=== PATIENT | female | born 1970 | race Caucasian/White ===

== ENCOUNTER 2017-04-16 07:54 | Day surgery (SDC) | payer OTHER ==
[~2017-04-16 07:54] MED LIST: Ketorolac 30 MG/ML SDV ONE; Midazolam 1 MG/ML 2 ML SDV ONE; Ondansetron 4 MG/2 ML SDV ONE; Propofol 200 MG/20 ML SDV ONE; fentaNYL 250 MCG/5 ML SDV ONE
--- NOTE | 2017-04-16 09:19 | PCM.PREANE ---
Preanesthetic Assessment - Anesthesia/Transfusion/Family Hx Anesthesia History: Prior Anesthesia Without Reaction Family History of Anesthesia Reaction: No Transfusion History: No Prior Transfusion(s) Intubation History: Unknown - Review of Systems General: No Symptoms Pulmonary: No Symptoms Cardiovascular: No Symptoms Gastrointestinal: No Symptoms Neurological: No Symptoms Other: Reports: None - Physical Assessment O2 Sat by Pulse Oximetry: 97 Respiratory Rate: 16 Vital Signs: Last Vital Signs Temp 36.2 C 04/16/17 08:00 Pulse 78 04/16/17 08:00 Resp 16 04/16/17 08:00 BP 114/67 04/16/17 08:00 Pulse Ox 97 04/16/17 08:00 Height: 1.55 m Weight: 97.976 kg ASA Class: 2 Mental Status: Alert & Oriented x3 Airway Class: Mallampati = 2 Dentition: Reports: Normal Dentition, [place](s) (x1 left upper) Thyro-Mental Finger Breadths: 3 Mouth Opening Finger Breadths: 3 ROM/Head Extension: Full Lungs: Clear to Auscultation, Normal Respiratory Effort Cardiovascular: Regular Rate, Regular Rhythm - Lab Values: Laboratory Last Values WBC 7.42 K/uL (4.0-11.0) 04/15/17 09:54 RBC 4.81 M/uL (4.30-5.90) 04/15/17 09:54 Hgb 14.0 g/dL (12.0-16.0) 04/15/17 09:54 Hct 41.7 % (36.0-46.0) 04/15/17 09:54 MCV 86.7 fL (80.0-98.0) 04/15/17 09:54 MCH 29.1 pg (27.0-32.0) 04/15/17 09:54 MCHC 33.6 g/dL (31.0-37.0) 04/15/17 09:54 RDW Std Deviation 44.6 fl (28.0-62.0) 04/15/17 09:54 RDW Coeff of Larissa 14 % (11.0-15.0) 04/15/17 09:54 Plt Count 226 K/uL (150-400) 04/15/17 09:54 MPV 10.10 fL (7.40-12.00) 04/15/17 09:54 Nucleated RBC % 0.0 /100WBC 04/15/17 09:54 Nucleated RBCs # 0 K/uL 04/15/17 09:54 - Allergies Allergies/Adverse Reactions: Allergies Allergy/AdvReac Type Severity Reaction Status Date / Time codeine Allergy Rash Verified 04/11/17 11:42 - Blood Blood Available: No - Anesthesia Plan Pre-Op Medication Ordered: None - Acknowledgements Anesthesia Type Planned: General Anesthesia Pt an Appropriate Candidate for the Planned Anesthesia: Yes Alternatives and Risks of Anesthesia Discussed w Pt/Guardian: Yes Pt/Guardian Understands and Agrees with Anesthesia Plan: Yes PreAnesthesia Questionnaire HEENT History: Reports: Allergic Rhinitis Other HEENT History: wears glasses Cardiovascular History: Reports: None Respiratory History: Reports: None Gastrointestinal History: Reports: None Genitourinary History: Reports: Renal Calculus 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: Musculoskeletal History: Reports: Fracture, Neck Pain, Chronic Other Musculoskeletal History: hx of fx wrist and toes, arthritis in neck Neurological History: Reports: Migraines Psychiatric History: Reports: Anxiety, Depression Endocrine/Metabolic History: Reports: Obesity/BMI 30+ Hematologic History: Reports: B12 Deficiency Immunologic History: Reports: None Oncologic (Cancer) History: Reports: None Dermatologic History: Reports: None - Past Surgical History Head Surgeries/Procedures: Reports: None HEENT Surgical History: Reports: None Cardiovascular Surgical History: Reports: None Respiratory Surgical History: Reports: None GI Surgical History: Reports: Appendectomy, Cholecystectomy Female Surgical History: Reports: Section, Kidney stone extraction Endocrine Surgical History: Reports: None Neurological Surgical History: Reports: None Musculoskeletal Surgical History: Reports: None Oncologic Surgical History: Reports: None - SUBSTANCE USE Smoking Status *Q: Former Smoker (quit 8 years ago) Second Hand Smoke Exposure: No Recreational Drug Use History: Yes Recreational Drug Type: Reports: Marijuana/Hashish - HOME MEDS Home Medications: Home Meds Cholecalciferol (Vitamin D3) [Vitamin D3] 800 unit PO DAILY 04/11/17 [History] Cyanocobalamin (Vitamin B-12) [Vitamin B-12] 1,000 mcg IM WEEKLY 04/11/17 [ History] Fexofenadine [Jenny] 60 mg PO DAILY 04/11/17 [History] Triamcinolone Acetonide [Nasacort] 2 spray NASBOTH DAILY 04/11/17 [History] - CURRENT (IN HOUSE) MEDS Current Meds: Current Medications Discontinued Medications Fentanyl (Sublimaze) Confirm Administered Dose 250 mcg .ROUTE .STK-MED ONE Stop: 04/16/17 07:19 Ketorolac Tromethamine (Toradol) Confirm Administered Dose 30 mg .ROUTE .STK- MED ONE Stop: 04/16/17 07:31 Lidocaine HCl (Xylocaine-Mpf 1%) Confirm Administered Dose 5 ml .ROUTE .STK-MED ONE Stop: 04/16/17 07:19 Midazolam HCl (Versed 1 Mg/Ml) Confirm Administered Dose 2 mg .ROUTE .STK-MED ONE Stop: 04/16/17 07:19 Ondansetron HCl (Zofran) Confirm Administered Dose 4 mg .ROUTE .STK-MED ONE Stop: 04/16/17 07:19 Propofol (Diprivan 20 Ml) Confirm Administered Dose 200 mg .ROUTE .STK-MED ONE Stop: 04/16/17 07:19
--- NOTE | 2017-04-16 09:51 | PCM.OPNOTE ---
- General Post-Op/Procedure Note Date of Surgery/Procedure: 04/16/17 Operative Procedure(s): Hysteroscopic polypectomy, fractional dilatation and curettage Findings: Uterus anteverted, 7 mm left cornual polyp, otherwise normal endometrial cavity , sounds to 6 cm. Pre Op Diagnosis: post-menopausal bleeding Post-Op Diagnosis: Same and endometrial polyp Anesthesia Technique: General LMA Primary Surgeon: Carri Cannon Anesthesia Provider: Dhaval Jara Dental Scheduler: Mauro Maddox Pathology: left cornual polyp, endometrial curettings, endocervical curettings Fluid Replacement, Intraop: 700 EBL in mLs: 10 Drain/Tube Comments:: hysteroscopic deficit 80 ml NS Complications: none known Condition: Good
[2017-04-16] MEDS ORDERED: fentaNYL 100 MCG/2 ML SDV IVPUSH PRN (10:12)
--- NOTE | 2017-04-16 10:25 | PCM.POSTAN ---
POST ANESTHESIA ASSESSMENT - MENTAL STATUS Mental Status: Alert, Oriented - RESPIRATORY Respiratory Status: Respiratory Rate WNL, Airway Patent, O2 Saturation Stable - CARDIOVASCULAR CV Status: Pulse Rate WNL, Blood Pressure Stable - GASTROINTESTINAL GI Status: No Symptoms - PAIN Pain Score: 1 - POST OP HYDRATION Hydration Status: Adequate & Stable - OBSERVATIONS Free Text/Narrative:: no anesthesia problems
--- NOTE | 2017-04-16 10:36 | OR ---
SURGEON: Carri Cannon M.D. DATE OF PROCEDURE: 04/16/2017 PREOPERATIVE DIAGNOSIS: Postmenopausal bleeding. POSTOPERATIVE DIAGNOSES: Postmenopausal bleeding and endometrial polyp. LETTER CARRIER: Cici Morillo MS-4. ANESTHESIA: General. ESTIMATED BLOOD LOSS: Minimal. FLUID: 700 mL crystalloid. Hysteroscopic deficit 80 mL of normal saline. FINDINGS: The uterus was anteverted at the external os of the cervix was stenotic, but then was easily dilated. The vagina was clearly atrophic. The uterine cavity sounded to 6 cm. There was a 7 mm polyp at the left uterine cornu, otherwise, completely normal endometrial cavity, atrophic in appearance. Bilateral tubal ostia were identified. COMPLICATIONS: None known. DISPOSITION: Stable to recovery. BRIEF HISTORY: This is a 47-year-old female with an episode of postmenopausal bleeding. Ultrasound in the office showed a thickened endometrium. She was noted to have cervical stenosis and therefore decided to proceed with hysteroscopy with possible polypectomy, possible myomectomy, possible directed biopsies, and fractional D and C in the OR with risks discussed including bleeding, infection, uterine perforation with injury to surrounding organs, risk of fluid overload. Understanding all these risks, she does desire to proceed. DESCRIPTION OF PROCEDURE: With the patient in dorsal lithotomy position, under adequate general analgesia, the perineum and vagina were prepped with Betadine and draped in usual fashion for vaginal surgery. SCDs were in place. She had her bladder drained and an appropriate time-out was held. Bimanual examination revealed an anteverted 8- week size uterus with a slight amount of prolapse. The speculum was placed into the vagina. The vagina was atrophic. The cervix was grasped with an Allis clamp. The stenotic external os of the cervix was entered with a sharp tip of the 3 mm Hegar dilator. Following this, I was able to easily dilate to 5 mm Hegar dilator and the 5 mm hysteroscope was placed into the uterine cavity with excellent visualization. There was noted to be a polyp at the left uterine cornu, otherwise, completely normal uterine cavity. Bilateral tubal ostia were identified. The base of the polyp was snipped with hysteroscopic scissors and grasped with a grasping forceps and removed, sent as a separate specimen. Sharp curettage of the endocervix was then performed collecting the tissue with a Cytobrush and the cervix was further dilated to 8 mm, and the uterine curette was placed into the cavity. Sharp curettage was performed starting at the 12 o'clock position and completing in a clockwise manner. A very small amount of tissue was obtained. Final sponge, needle, and instrument counts were reported as correct. There were no known complications. The patient was transferred to recovery in good condition. KRISTIN MUÑOZ /[id number]
[2017-04-16 11:09] VITALS: BP 119/64
== END 2017-04-16 08:49 | disposition home or self-care (01) ==
LOC: MW.SDS 07:54
PROVIDERS: ATTEND Obstetrics & Gynecology
DX: N84.0 Polyp of corpus uteri (principal); F32.9 Major depressive disorder, single episode, unspecified; F41.9 Anxiety disorder, unspecified; G43.909 Migraine, unspecified, not intractable, without status migrainosus; E53.8 Deficiency of other specified B group vitamins; E66.9 Obesity, unspecified; Z87.442 Personal history of urinary calculi; Z87.891 Personal history of nicotine dependence; Z90.49 Acquired absence of other specified parts of digestive tract; Z98.890 Other specified postprocedural states; Z79.899 Other long term (current) drug therapy; Z88.5 Allergy status to narcotic agent; Z68.41 Body mass index [BMI] 40.0-44.9, adult
CPT/HCPCS: 36415; 58558; 85027; J1885; J2250; J2405; J3010; 00952; 88305; J2704

== ENCOUNTER 2021-04-18 10:56 | Emergency (ER) | payer OTHER ==
[2021-04-18] MEDS ORDERED: Alum Hydrox/Mag Hydrox/Simeth 15 ML, Lidocaine 2% 5 ML PO ONE ×2 (11:24)
[2021-04-18] MEDS ORDERED: Famotidine 20 MG/2 ML SDV IVPUSH ONE (11:24)
--- NOTE | 2021-04-18 11:28 | EDM.PDOC ---
ED HPI GENERAL MEDICAL PROBLEM - General Chief Complaint: Abdominal Pain Stated Complaint: ABDOMINAL PAIN RADIATING INTO BACK Time Seen by Provider: 04/18/21 11:14 Source of Information: Reports: Patient History Limitations: Reports: No Limitations - History of Present Illness INITIAL COMMENTS - FREE TEXT/NARRATIVE: Patient is a 51-year-old female who presents today for abdominal pain. States that she had a similar pain before in the past and multiple tests did not find a reason for the pain he had better on his own. She reports eating some [employer] a few days ago and notes that today about an hour ago the pain became more intense is now radiating to her back. States eating makes the pain worse nothing makes the pain better. She denies any nausea vomiting diarrhea or other symptoms. RUQ Pain Score (Numeric/FACES): 9 - Related Data Allergies Allergy/AdvReac Type Severity Reaction Status Date / Time codeine Allergy Rash Verified 04/18/21 11:21 mold Allergy Shortness Verified 04/18/21 11:21 of Breath Home Meds: Home Meds Cholecalciferol (Vitamin D3) [Vitamin D3] 800 unit PO DAILY 04/11/17 [History] Cyanocobalamin (Vitamin B-12) [Vitamin B-12] 1,000 mcg IM WEEKLY 04/11/17 [History] Omeprazole 20 mg PO DAILY 04/18/21 [History] Past Medical History HEENT History: Reports: Allergic Rhinitis Other HEENT History: wears glasses Cardiovascular History: Reports: None Respiratory History: Reports: None Gastrointestinal History: Reports: None Genitourinary History: Reports: Renal Calculus 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: Musculoskeletal History: Reports: Fracture, Neck Pain, Chronic Other Musculoskeletal History: hx of fx wrist and toes, arthritis in neck Neurological History: Reports: Migraines Psychiatric History: Reports: Anxiety, Depression Endocrine/Metabolic History: Reports: Obesity/BMI 30+ Hematologic History: Reports: B12 Deficiency Immunologic History: Reports: None Oncologic (Cancer) History: Reports: None Dermatologic History: Reports: None - Past Surgical History Head Surgeries/Procedures: Reports: None HEENT Surgical History: Reports: None Cardiovascular Surgical History: Reports: None Respiratory Surgical History: Reports: None GI Surgical History: Reports: Appendectomy, Cholecystectomy Female Surgical History: Reports: Section, Kidney stone extraction Endocrine Surgical History: Reports: None Neurological Surgical History: Reports: None Musculoskeletal Surgical History: Reports: None Oncologic Surgical History: Reports: None Social & Family History - Family History Family Medical History: No Pertinent Family History ED ROS GENERAL - Review of Systems Review Of Systems: See Below Constitutional: Reports: No Symptoms HEENT: Reports: No Symptoms Respiratory: Reports: No Symptoms Cardiovascular: Reports: No Symptoms Endocrine: Reports: No Symptoms GI/Abdominal: Reports: Abdominal Pain : Reports: No Symptoms Musculoskeletal: Reports: No Symptoms Skin: Reports: No Symptoms Neurological: Reports: No Symptoms Psychiatric: Reports: No Symptoms Hematologic/Lymphatic: Reports: No Symptoms Immunologic: Reports: No Symptoms ED EXAM, GI/ABD - Physical Exam Exam: See Below Exam Limited By: No Limitations General Appearance: Alert, WD/WN, No Apparent Distress Eyes: Bilateral: EOMI Ears: Normal External Exam Head: Atraumatic, Normocephalic Respiratory/Chest: No Respiratory Distress, Lungs Clear Cardiovascular: Normal Peripheral Pulses, Regular Rate, Rhythm Back Exam: No: CVA Tenderness (L), CVA Tenderness (R) Extremities: Normal Inspection Neurological: Alert, Oriented, Normal Cognition, Normal Gait Course - Vital Signs Last Recorded V/S: Last Vital Signs Temp 96.9 F 04/18/21 11:22 Pulse 87 04/18/21 12:51 Resp 16 04/18/21 12:51 BP 137/81 04/18/21 12:51 Pulse Ox 100 04/18/21 12:51 - Orders/Labs/Meds Labs: Laboratory Tests 04/18/21 04/18/21 04/18/21 Range/Units 11:24 11:24 12:02 WBC 10.83 (4.0-11.0) K/uL RBC 4.50 (4.30-5.90) M/uL Hgb 12.4 (12.0-16.0) g/dL Hct 37.9 (36.0-46.0) % MCV 84.2 (80.0-98.0) fL MCH 27.6 (27.0-32.0) pg MCHC 32.7 (31.0-37.0) g/dL RDW Std Deviation 44.4 (28.0-62.0) fl RDW Coeff of Larissa 15 (11.0-15.0) % Plt Count 264 (150-400) K/uL MPV 10.30 (7.40-12.00) fL Neut % (Auto) 81.9 H (48.0-80.0) % Lymph % (Auto) 11.5 L (16.0-40.0) % [place] % (Auto) 5.9 (0.0-15.0) % Eos % (Auto) 0.5 (0.0-7.0) % Baso % (Auto) 0.2 (0.0-1.5) % Neut # (Auto) 8.9 H (1.4-5.7) K/uL Lymph # (Auto) 1.3 (0.6-2.4) K/uL [place] # (Auto) 0.6 (0.0-0.8) K/uL Eos # (Auto) 0.1 (0.0-0.7) K/uL Baso # (Auto) 0.0 (0.0-0.1) K/uL Nucleated RBC % 0.0 /100WBC Nucleated RBCs # 0 K/uL Sodium 138 (136-145) mmol/L Potassium 4.1 (3.5-5.1) mmol/L Chloride 104 (98-107) mmol/L Carbon Dioxide 23.3 (21.0-32.0) mmol/L BUN 18 (7.0-18.0) mg/dL Creatinine 0.9 (0.6-1.0) mg/dL Est Cr Clr Drug Dosing 55.18 mL/min Estimated GFR (MDRD) > 60.0 ml/min Glucose 106 (74-106) mg/dL Calcium 8.8 (8.5-10.1) mg/dL Phosphorus 3.0 (2.6-4.7) mg/dL Magnesium 1.9 (1.8-2.4) mg/dL Total Bilirubin 0.3 (0.2-1.0) mg/dL AST 15 (15-37) IU/L ALT 23 (14-63) IU/L Alkaline Phosphatase 94 (46-116) U/L Total Protein 7.5 (6.4-8.2) g/dL Albumin 3.8 (3.4-5.0) g/dL Globulin 3.7 (2.6-4.0) g/dL Albumin/Globulin Ratio 1.0 (0.9-1.6) Lipase 103 (73-393) U/L Urine Color YELLOW Urine Appearance CLEAR Urine pH 6.0 (5.0-8.0) Ur Specific Howard 1.015 (1.001-1.035) Urine Protein NEGATIVE (NEGATIVE) mg/dL Urine Glucose (UA) NEGATIVE (NEGATIVE) mg/dL Urine Ketones NEGATIVE (NEGATIVE) mg/dL Urine Occult Blood NEGATIVE (NEGATIVE) Urine Nitrite NEGATIVE (NEGATIVE) Urine Bilirubin NEGATIVE (NEGATIVE) Urine Urobilinogen 0.2 (<2.0) EU/dL Ur Leukocyte Esterase NEGATIVE (NEGATIVE) Urine HCG, Qual (NEGATIVE) 04/18/21 Range/Units 12:02 WBC (4.0-11.0) K/uL RBC (4.30-5.90) M/uL Hgb (12.0-16.0) g/dL Hct (36.0-46.0) % MCV (80.0-98.0) fL MCH (27.0-32.0) pg MCHC (31.0-37.0) g/dL RDW Std Deviation (28.0-62.0) fl RDW Coeff of Larissa (11.0-15.0) % Plt Count (150-400) K/uL MPV (7.40-12.00) fL Neut % (Auto) (48.0-80.0) % Lymph % (Auto) (16.0-40.0) % Montgomery % (Auto) (0.0-15.0) % Eos % (Auto) (0.0-7.0) % Baso % (Auto) (0.0-1.5) % Neut # (Auto) (1.4-5.7) K/uL Lymph # (Auto) (0.6-2.4) K/uL Montgomery # (Auto) (0.0-0.8) K/uL Eos # (Auto) (0.0-0.7) K/uL Baso # (Auto) (0.0-0.1) K/uL Nucleated RBC % /100WBC Nucleated RBCs # K/uL Sodium (136-145) mmol/L Potassium (3.5-5.1) mmol/L Chloride (98-107) mmol/L Carbon Dioxide (21.0-32.0) mmol/L BUN (7.0-18.0) mg/dL Creatinine (0.6-1.0) mg/dL Est Cr Clr Drug Dosing mL/min Estimated GFR (MDRD) ml/min Glucose (74-106) mg/dL Calcium (8.5-10.1) mg/dL Phosphorus (2.6-4.7) mg/dL Magnesium (1.8-2.4) mg/dL Total Bilirubin (0.2-1.0) mg/dL AST (15-37) IU/L ALT (14-63) IU/L Alkaline Phosphatase (46-116) U/L Total Protein (6.4-8.2) g/dL Albumin (3.4-5.0) g/dL Globulin (2.6-4.0) g/dL Albumin/Globulin Ratio (0.9-1.6) Lipase (73-393) U/L Urine Color Urine Appearance Urine pH (5.0-8.0) Ur Specific Howard (1.001-1.035) Urine Protein (NEGATIVE) mg/dL Urine Glucose (UA) (NEGATIVE) mg/dL Urine Ketones (NEGATIVE) mg/dL Urine Occult Blood (NEGATIVE) Urine Nitrite (NEGATIVE) Urine Bilirubin (NEGATIVE) Urine Urobilinogen (<2.0) EU/dL Ur Leukocyte Esterase (NEGATIVE) Urine HCG, Qual NEGATIVE (NEGATIVE) Meds: Medications Discontinued Medications Generic Name Dose Route Start Last Admin Trade Name Freq PRN Reason Stop Dose Admin Al Hydroxide/Mg Hydroxide 15 0 ml 04/18/21 11:24 04/18/21 11:32 ml/ Lidocaine HCl 5 ml PO 04/18/21 11:25 1 each ONETIME ONE Administration Famotidine 20 mg 04/18/21 11:24 04/18/21 11:33 Famotidine 20 Mg/2 Ml Sdv IVPUSH 04/18/21 11:25 20 mg ONETIME ONE Administration Ketorolac Tromethamine 15 mg 04/18/21 12:19 04/18/21 12:23 Ketorolac 15 Mg/Ml Sdv IVPUSH 04/18/21 12:20 15 mg NOW STA Administration - Re-Assessments/Exams Free Text/Narrative Re-Assessment/Exam: 04/18/21 15:[address] scan shows a large lymph node possible duodenitis. Patient was already seen by surgery and was planned to be scoped but did not proceed because she felt better. We will refer patient back to general surgery. We will send patient with Maalox and simethicone. Departure - Departure Time of Disposition: 15:03 Disposition: Home, Self-Care 01 Condition: Good Clinical Impression: Duodenitis - Discharge Information *PRESCRIPTION DRUG MONITORING PROGRAM REVIEWED*: Not Applicable *COPY OF PRESCRIPTION DRUG MONITORING REPORT IN PATIENT JONES: Not Applicable Instructions: Duodenitis Referrals: Sandy Clement NP [Primary Care Provider] - Forms: ED Department Discharge Additional Instructions: The following information is given to patients seen in the emergency department who are being discharged to home. This information is to outline your options for follow-up care. We provide all patients seen in our emergency department with a follow-up referral. The need for follow-up, as well as the timing and circumstances, are variable depending upon the specifics of your emergency department visit. If you don't have a primary care physician on staff, we will provide you with a referral. We always advise you to contact your personal physician following an emergency department visit to inform them of the circumstance of the visit and for follow-up with them and/or the need for any referrals to a consulting specialist. The emergency department will also refer you to a specialist when appropriate. This referral assures that you have the opportunity for follow-up care with a specialist. All of these measure are taken in an effort to provide you with optimal care, which includes your follow-up. Under all circumstances we always encourage you to contact your private physician who remains a resource for coordinating your care. When calling for follow-up care, please make the office aware that this follow-up is from your recent emergency room visit. If for any reason you are refused follow-up, please contact the [facility] Emergency Department at and asked to speak to the emergency department charge nurse. Please follow up with your primary care physician. If you do not have a primary care physician, see below: [facility] - General Surgery Professional Building [address] [place] [address], [address] [place] [address] You were seen today for abdominal pain. Your CAT scan showed enlarged lymph nodes by related to duodenitis. We will send you home with some Maalox and simethicone to help out with the pain. Seen in the past by general surgery and was a continue to have work-up recommended few please follow-up with general surgery for further care. You have any other concerning signs or symptom please return to the ED. Sepsis Event Note (ED) - Evaluation Sepsis Screening Result: No Definite Risk - Focused Exam Vital Signs: Vital Signs Temp Pulse Resp BP Pulse Ox 04/18/21 12:51 87 16 137/81 100 04/18/21 11:22 96.9 F 95 20 153/84 H 98 - Assessment/Plan Plan: Patient is a 51-year-old female presents today for upper abdominal pain. Patient has tenderness in the LUQ and epigastric area. Will obtain labs provide pain control's and likely scan the patient.
[2021-04-18 12:07] LABS: BLOOD UREA NITROGEN,BUN 18 mg/dL (7.0-18.0); CARBON DIOXIDE,CO2 23.3 mmol/L (21.0-32.0); CHLORIDE,CL 104 mmol/L (98-107); GLUCOSE RANDOM 106 mg/dL (74-106); LIPASE 103 U/L (73-393); POTASSIUM,K 4.1 mmol/L (3.5-5.1); SODIUM,NA 138 mmol/L (136-145)
[2021-04-18] MEDS ORDERED: Ketorolac 15 MG/ML SDV IVPUSH STA (12:19)
--- NOTE | 2021-04-18 14:46 | CT ---
INDICATION: Epigastric pain radiating to the back. TECHNIQUE: CT of the abdomen and pelvis with 100 cc Isovue 370 IV contrast. Coronal and sagittal reconstructions. COMPARISON: CT of the abdomen and pelvis of 01/31/2016. FINDINGS: The liver is enlarged measuring 20 cm in length. Diffuse hepatic steatosis. The spleen is enlarged measuring 13.8 cm in length. Cholecystectomy. No biliary dilation. The adrenal glands are negative. Hepatic and portal veins are patent. There is a focus of fat stranding with a prominent lymph node in the central retroperitoneum medial to the uncinate process of the pancreas and adjacent to the transverse duodenum (series 201 images [id number] and series 203, image 65). Mild wall thickening of the duodenum. Findings could represent focal pancreatitis or duodenitis. No fluid collection to suggest pseudocyst. No dilation of the pancreatic duct. Symmetric enhancement of the kidneys. Small low-attenuation lesions in both kidneys most likely represent cysts. No hydronephrosis or ureteral dilation. No obstructing urinary calculi. The bladder and uterus are normal in appearance. There is a 5.3 cm cystic lesion in the right adnexa (series 201, image 150). No abnormality in the left adnexa. No bowel dilation. There is a redundant loop of duodenum prior to crossing midline. The cecum is located in the right upper quadrant similar to prior exam. The appendix is not identified, however there are no secondary signs of inflammation adjacent to the cecum. No intraperitoneal free air or fluid. No lymphadenopathy by size criteria. Degenerative changes of pubic symphysis. Abnormal trabeculation within the posterior iliac bones similar to prior exam. Minimal dependent atelectasis. The lung bases are otherwise clear. IMPRESSION: 1. Focus of fat stranding with a prominent lymph node in the central retroperitoneum medial to the uncinate process of the pancreas and adjacent to the transverse duodenum. Findings could represent focal pancreatitis or duodenitis. 2. Mild hepatosplenomegaly with diffuse hepatic steatosis. 3. 5.3 cm cystic lesion in the right adnexa. This could be further evaluated with pelvic ultrasound. Please note that all CT scans at this facility use dose modulation, iterative reconstruction, and/or weight-based dosing when appropriate to reduce radiation dose to as low as reasonably achievable. Dictated by Maribell Serna MD @ 04/18/2021 2:45:[address] Maribell Serna @ Apr 18 2021 2:45PM
[2021-04-18 15:30] VITALS: BP 132/85; PULSE 88
[2021-04-18] MEDS ORDERED: Iopamidol 755 MG/ML 500 ML Multipack Bottle IVPUSH STA (17:43)
== END 2021-04-18 15:31 | disposition home or self-care (01) ==
LOC: MW.ED 10:56
DX: K29.80 Duodenitis without bleeding (principal); E66.9 Obesity, unspecified; Z68.42 Body mass index [BMI] 45.0-49.9, adult; Z88.5 Allergy status to narcotic agent; Z91.048 Other nonmedicinal substance allergy status
CPT/HCPCS: 74177; 80053; 81003; 81025; 83690; 83735; 84100; 85025; 96374; 96375; 99284; A9270; J1885; J3490; Q9967

== ENCOUNTER 2021-05-11 11:55 | Day surgery (SDC) | payer OTHER ==
[~2021-05-11 11:55] MED LIST changes: -Ketorolac 30 MG/ML SDV ONE; +Lactated Ringers 1,000 ML IV SCH; -Midazolam 1 MG/ML 2 ML SDV ONE; -Ondansetron 4 MG/2 ML SDV ONE; -Propofol 200 MG/20 ML SDV ONE; +Sodium Chloride 0.9% 10 ML SDV IV PRN; +Sodium Chloride 0.9% 10 ML Syringe FLUSH PRN; +Sodium Chloride 0.9% 2.5 ML Syringe FLUSH PRN; -fentaNYL 250 MCG/5 ML SDV ONE
--- NOTE | 2021-05-11 12:23 | PCM.PREANE ---
Preanesthetic Assessment - Procedure Proposed Procedure: EGD, Colonoscopy - Anesthesia/Transfusion/Family Hx Anesthesia History: Prior Anesthesia Without Reaction Transfusion History: No Prior Transfusion(s) Intubation History: Unknown - Review of Systems General: No Symptoms Pulmonary: No Symptoms (Quit smoking x12 yrs) Cardiovascular: No Symptoms Gastrointestinal: No Symptoms (GERD well controlled) Neurological: No Symptoms (Chronic SLAUGHTER's) Other: Reports: None (h/o kidney stones) - Physical Assessment NPO Status Date: 05/09/21 NPO Status Time: 21:00 (Solids, 0945 today liq) Vital Signs: Last Vital Signs Temp 98.1 F 05/11/21 11:55 Pulse 92 05/11/21 11:55 Resp 15 05/11/21 11:55 BP 163/94 H 05/11/21 11:55 Pulse Ox 98 05/11/21 11:55 Height: 5 ft 1 in Weight: 110.677 kg (Morbid obesity) ASA Class: 3 Mental Status: Alert & Oriented x3 Airway Class: Mallampati = 2 Dentition: Reports: Normal Dentition Thyro-Mental Finger Breadths: 3 Mouth Opening Finger Breadths: 3 ROM/Head Extension: Full Lungs: Clear to Auscultation, Normal Respiratory Effort Cardiovascular: Regular Rate, Regular Rhythm - Allergies Allergies/Adverse Reactions: Allergies Allergy/AdvReac Type Severity Reaction Status Date / Time codeine Allergy Rash Verified 05/05/21 10:58 mold Allergy Shortness Verified 05/05/21 10:58 of Breath - Acknowledgements Anesthesia Type Planned: General Anesthesia Pt an Appropriate Candidate for the Planned Anesthesia: Yes Alternatives and Risks of Anesthesia Discussed w Pt/Guardian: Yes Pt/Guardian Understands and Agrees with Anesthesia Plan: Yes PreAnesthesia Questionnaire HEENT History: Other HEENT History: wears glasses Cardiovascular History: Reports: None Respiratory History: Reports: None Gastrointestinal History: Reports: GERD Other Gastrointestinal History: current abdominal pain Genitourinary History: Reports: Renal Calculus CAN CLEANER History: Reports: Musculoskeletal History: Reports: Fracture, Neck Pain, Chronic Other Musculoskeletal History: hx of fx wrist and toes, arthritis in neck Neurological History: Reports: Headaches, Chronic Other Neuro History: chronic headaches due to neck pain Psychiatric History: Reports: Anxiety Endocrine/Metabolic History: Reports: Obesity/BMI 30+ Hematologic History: Reports: B12 Deficiency Immunologic History: Reports: None Oncologic (Cancer) History: Reports: None Dermatologic History: Reports: None - Infectious Disease History Infectious Disease History: Reports: Chicken Pox - Past Surgical History Head Surgeries/Procedures: Reports: None HEENT Surgical History: Reports: None Cardiovascular Surgical History: Reports: None Respiratory Surgical History: Reports: None GI Surgical History: Reports: Appendectomy, Cholecystectomy Female Surgical History: Reports: Section, Kidney stone extraction, LEEP Other Female Surgeries/Procedures: Hysteroscopy Endocrine Surgical History: Reports: None Neurological Surgical History: Reports: None Musculoskeletal Surgical History: Reports: None Oncologic Surgical History: Reports: None - SUBSTANCE USE Tobacco Use Status *Q: Former Tobacco User Tobacco Use Within Last Twelve Months: No Recreational Drug Use History: No - HOME MEDS Home Medications: Home Meds Cholecalciferol (Vitamin D3) [Vitamin D3] 400 unit PO DAILY 04/11/17 [History] Omeprazole 20 mg PO QAM 04/18/21 [History] Cyanocobalamin (Vitamin B12) [Vitamin B12] 500 mcg PO DAILY 05/05/21 [History] - CURRENT (IN HOUSE) MEDS Current Meds: Current Medications Lactated Ringer's (Ringers, Lactated) 1,000 mls @ 125 mls/hr IV ASDIRECTED DEVON Sodium Chloride (Sodium Chloride 0.9% 10 Ml Syringe) 10 ml FLUSH ASDIRECTED PRN PRN Reason: Keep Vein Open Sodium Chloride (Sodium Chloride 0.9% 2.5 Ml Syringe) 2.5 ml FLUSH ASDIRECTED PRN PRN Reason: Keep Vein Open Sodium Chloride (Sodium Chloride 0.9% 10 Ml Syringe) 10 ml FLUSH ASDIRECTED PRN PRN Reason: Keep Vein Open Sodium Chloride (Sodium Chloride 0.9% 2.5 Ml Syringe) 2.5 ml FLUSH ASDIRECTED PRN PRN Reason: Keep Vein Open Sodium Chloride (Sodium Chloride 0.9% 10 Ml Sdv) 10 ml IV ASDIRECTED PRN PRN Reason: IV Use
[2021-05-11] MEDS ORDERED: Lidocaine 2% 5 ML SDV ONE (14:14)
[2021-05-11] MEDS ORDERED: propofoL 50 ML ONE (14:14)
[2021-05-11] MEDS ORDERED: Propofol 200 MG/20 ML SDV ONE ×2 (15:27→15:43)
--- NOTE | 2021-05-11 16:06 | PCM.POSTAN ---
POST ANESTHESIA ASSESSMENT - MENTAL STATUS Mental Status: Alert, Oriented - VITAL SIGNS Vital Signs: Last Vital Signs Temp 98.1 F 05/11/21 11:55 Pulse 92 05/11/21 11:55 Resp 15 05/11/21 11:55 BP 163/94 H 05/11/21 11:55 Pulse Ox 98 05/11/21 11:55 - RESPIRATORY Respiratory Status: Respiratory Rate WNL, Airway Patent, O2 Saturation Stable - CARDIOVASCULAR CV Status: Pulse Rate WNL, Blood Pressure Stable - GASTROINTESTINAL GI Status: No Symptoms - PAIN Pain Score: 0 - POST OP HYDRATION Hydration Status: Adequate & Stable
--- NOTE | 2021-05-11 16:08 | PCM48HPAN ---
Post Anesthesia Note - EVALUATION WITHIN 48HRS OF ANESTHETIC Vital Signs in Normal Range: Yes Patient Participated in Evaluation: Yes Respiratory Function Stable: Yes Airway Patent: Yes Cardiovascular Function Stable: Yes Hydration Status Stable: Yes Pain Control Satisfactory: Yes Nausea and Vomiting Control Satisfactory: Yes Mental Status Recovered: Yes Vital Signs: Last Vital Signs Temp 97.7 F 05/11/21 15:58 Pulse 87 05/11/21 16:05 Resp 16 05/11/21 16:05 BP 138/80 05/11/21 16:05 Pulse Ox 100 05/11/21 16:05 - COMMENTS/OBSERVATIONS Free Text/Narrative:: Pt doing well post-op. VSS. No apparent anesthetic complications. Dr. Vladimir Ho
--- NOTE | 2021-05-11 16:10 | PCM.OPNOTE ---
- General Post-Op/Procedure Note Date of Surgery/Procedure: 05/11/21 Operative Procedure(s): Diagnostic EGD and colonoscopy Findings: Normal colonoscopy. Normal appearing duodenum. Hiatal hernia Pre Op Diagnosis: Duodenitis, change in bowel habits Post-Op Diagnosis: Hiatal hernia, normal colonoscopy Anesthesia Technique: [facility] [place] Primary Surgeon: Unique Allison Condition: Good
[2021-05-11] MEDS ORDERED: Acetaminophen 1,000 MG in Premix Bag 1 BAG IV ONE (16:11)
[2021-05-11 16:38] VITALS: BP 133/66; PULSE 82
--- NOTE | 2021-05-12 20:40 | OR ---
SURGEON: UNIQUE ALLISON MD DATE OF PROCEDURE: 05/11/2021 PREOPERATIVE DIAGNOSES: 1. Duodenitis. 2. Change in bowel habits. POSTOPERATIVE DIAGNOSES: 1. Hiatal hernia. 2. Normal colonoscopy. 3. Grade 4 hemorrhoids. PROCEDURES PERFORMED: Diagnostic esophagogastroduodenoscopy and colonoscopy. PRIMARY SURGEON: Unique Allison MD ANESTHESIA: MAC. INSTRUMENTS USED: Olympus endoscope and colonoscope. EXTENT OF EXAM: To the second portion of duodenum, to the cecum. PREPARATION: Good. LIMITATIONS: None. INDICATIONS FOR EXAMINATION: The patient is a 51-year-old female who was recently in our emergency room with upper abdominal pain. She was found to have either duodenitis versus acute pancreatitis. Ever since then, the patient has also had changes in her bowel habits. As a part of the patient's workup, the decision was made to proceed with diagnostic EGD and colonoscopy. I explained the procedures, expected perioperative course, and the risks. She verbalized understanding and wishes to proceed. PROCEDURE IN DETAIL: The patient was brought in to the endoscopy suite and placed in the left lateral decubitus position. A time-out was completed verifying the patient's name, age, date of , allergies, and procedure to be performed. A bite block was placed in the patient's mouth. Monitored anesthesia care was induced and continuous oxygen was provided via face mask throughout the procedure. After adequate sedation was achieved, a well-lubricated endoscope was placed in the patient's mouth and advanced under direct visualization to the second portion of the duodenum. This appeared normal and a photograph was taken. The scope was then fully withdrawn while examining the color, texture, anatomy, and integrity of mucosa of the upper GI tract. Biopsies were taken of the second portion of the duodenum taking care to identify the opening of the common bile duct. In the first portion of duodenum, another biopsy was taken as well. These were sent to Pathology labeled as duodenal biopsy #2 and #1. #2 signified the second portion of duodenum and the first signified the first portion of duodenum. The scope was then brought into the stomach and a photograph was taken of the pylorus. This appeared normal. The scope was retroflexed and I identified a hiatal hernia at the GE junction. A photograph of this was taken. The gastric mucosa itself did not appear grossly inflamed or ulcerated. Biopsies were taken of the gastric antrum, body, and fundus. The scope was then brought into the distal esophagus. A photograph was taken of the hiatal hernia sac and the Z- line. The patient had no signs of distal esophagitis and a biopsy was taken 1 cm above the Z-line and sent to Pathology for histologic review. The scope was removed and this portion of the procedure terminated. The patient had a large amount of secretions and required aggressive suctioning during the case. The patient had some upper airway obstruction as well. Once her airway was stabilized, we then began the colonoscopy portion of the case. A digital rectal exam was performed which revealed grade 4 hemorrhoids. A well-lubricated colonoscope was inserted in the rectum and advanced under direct visualization to the level of the cecum. The cecum was identified by both visual and anatomic landmarks. A photograph was taken of the cecal cap. The scope was then fully withdrawn while examining the color, texture, anatomy, and integrity of the mucosa from the cecum to the anal canal. The patient's terminal ileum appeared normal. The colonic mucosa all appeared normal. There was no evidence of inflammation or ulceration. The scope was brought into the rectum and retroflexed to allow visualization of the anal canal opening. This appeared normal, and a photograph was taken. The scope was then straightened out and fully withdrawn. The cecum to anus time was greater than 6 minutes. The patient tolerated the procedure well and was transferred to the PACU in stable condition. ENDOSCOPIC DIAGNOSES: 1. Duodenitis. 2. Normal colonoscopy. 3. Grade 4 hemorrhoids. RECOMMENDATION: Follow up in clinic in two weeks. WENDY MUÑOZ /[id number]
== END 2021-05-11 16:50 | disposition home or self-care (01) ==
LOC: MW.SDS 11:55
PROVIDERS: ATTEND Surgery
DX: R19.4 Change in bowel habit (principal); K64.3 Fourth degree hemorrhoids; K29.80 Duodenitis without bleeding; K44.9 Diaphragmatic hernia without obstruction or gangrene; E66.9 Obesity, unspecified; Z88.5 Allergy status to narcotic agent; Z79.899 Other long term (current) drug therapy; Z90.49 Acquired absence of other specified parts of digestive tract; Z98.890 Other specified postprocedural states; Z87.891 Personal history of nicotine dependence; Z68.42 Body mass index [BMI] 45.0-49.9, adult
CPT/HCPCS: 43239; 45378; 88305; 88342; J0131; J2704; J7120; 00813

== ENCOUNTER 2022-03-13 17:48 | Emergency (ER) | payer OTHER ==
[2022-03-13 19:43] VITALS: BP 159/95; PULSE 71
== END 2022-03-13 19:48 | disposition home or self-care (01) ==
LOC: MW.ED 17:48
DX: S99.922A Unspecified injury of left foot, initial encounter (principal); K21.9 Gastro-esophageal reflux disease without esophagitis; E66.9 Obesity, unspecified; Z68.42 Body mass index [BMI] 45.0-49.9, adult; Z88.2 Allergy status to sulfonamides; Z91.048 Other nonmedicinal substance allergy status; Z79.899 Other long term (current) drug therapy; W01.0XXA Fall on same level from slipping, tripping and stumbling without subsequent striking against object, initial encounter
CPT/HCPCS: 73600-26-LT; 73600-LT; 73630-26-LT; 73630-LT; 99283

== ENCOUNTER 2023-05-25 20:59 | Inpatient (IN) | payer OTHER ==
[2023-05-25] MEDS ORDERED: Sodium Chloride 0.9% 10 ML Syringe FLUSH PRN (22:39)
[2023-05-25] MEDS ORDERED: Sodium Chloride 0.9% 2.5 ML Syringe FLUSH PRN (22:39)
[2023-05-25] MEDS ORDERED: Sodium Chloride 0.9% 1,000 ML IV ONE (22:39)
[2023-05-25 23:03] LABS: BASOPHILS PERCENT AUTO 0.2 % (0.0-1.5); EOSINOPHILS PERCENT AUTO 0.1 % (0.0-7.0); HEMATOCRIT 41.4 % (36.0-46.0); HEMOGLOBIN 13.7 g/dL (12.0-16.0); LYMPHOCYTES ABSOLUTE AUTO 0.6 K/uL (0.6-2.4); LYMPHOCYTES PERCENT AUTO 5.3 % (16.0-40.0); MEAN CORPUSCULAR HEMOGLOBIN 28.1 pg (27.0-32.0); MEAN CORPUSCULAR HGB CONC 33.1 g/dL (31.0-37.0); MEAN CORPUSCULAR VOLUME 84.8 fL (80.0-98.0); MONOCYTES ABSOLUTE AUTO 0.7 K/uL (0.0-0.8); MONOCYTES PERCENT AUTO 6.1 % (0.0-15.0); NEUTROPHILS ABSOLUTE AUTO 9.7 K/uL (1.4-5.7); NEUTROPHILS PERCENT AUTO 88.3 % (48.0-80.0); NRBC ABSOLUTE 0 K/uL; PLATELET COUNT,PLT 211 K/uL (150-400); RED BLOOD CELL COUNT 4.88 M/uL (4.30-5.90); WHITE BLOOD CELL COUNT,WBC 10.93 K/uL (4.0-11.0)
[2023-05-25 23:38] LABS: A/G RATIO 0.9 (0.9-1.6); ALBUMIN 3.7 g/dL (3.4-5.0); BILIRUBIN TOTAL 0.4 mg/dL (0.2-1.0); CALCIUM 8.5 mg/dL (8.5-10.1); CARBON DIOXIDE,CO2 21.1 mmol/L (21.0-32.0); CREATININE 0.9 mg/dL (0.6-1.0); EST CRCL DRUG DOSING (CG) 53.92 mL/min; MAGNESIUM 1.7 mg/dL (1.8-2.4); POTASSIUM,K 3.8 mmol/L (3.5-5.1); PROTEIN TOTAL,TP 7.7 g/dL (6.4-8.2)
[2023-05-25] MEDS ORDERED: Ketorolac 30 MG/ML SDV IVPUSH ONE (23:56)
[2023-05-26] MEDS ORDERED: Iopamidol 755 MG/ML 500 ML Multipack Bottle IVPUSH ONE (00:09)
[2023-05-26 00:13] LABS: APPEARANCE,URINE CLEAR; BILIRUBIN,URINE NEGATIVE (NEGATIVE); COLOR,URINE YELLOW; GLUCOSE,URINE NEGATIVE (NEGATIVE); KETONES,URINE NEGATIVE (NEGATIVE); LEUKOCYTE ESTERASE,URINE NEGATIVE (NEGATIVE); NITRITE,URINE NEGATIVE (NEGATIVE); OCCULT BLOOD,URINE TRACE-INTACT (NEGATIVE); PROTEIN,URINE NEGATIVE (NEGATIVE); UROBILINOGEN,URINE 0.2 EU/dL (<2.0)
[2023-05-26] MEDS ORDERED: Sodium Chloride 0.9% 1,000 ML IV ONE ×3 (00:13→17:13)
[2023-05-26 00:45] LABS: EPITHELIAL CELLS,URINE FEW (NONE-FEW); RBC,URINE 0-1 (0-2/HPF); WBC,URINE 0-1 (0-5/HPF)
[2023-05-26 00:46] LABS: BACTERIA,URINE RARE (NEGATIVE)
[2023-05-26] MEDS ORDERED: Acetaminophen 500 MG Tab PO ONE (02:38)
[2023-05-26 04:15] LABS: TSH ULTRASENSITIVE 0.97 uIU/mL (0.36-3.74)
[2023-05-26] MEDS ORDERED: Benzocaine/Cetylpyridinium/Menthol Lozenge MUCMEM PRN (05:17)
[2023-05-26] MEDS ORDERED: cefTRIAXone 2 GM in Sodium Chloride 0.9% 50 ML IV SCH (05:30)
[2023-05-26] MEDS: Acetaminophen 325 MG Tab PO PRN ×4 (05:51→20:39)
[2023-05-26] MEDS ORDERED: Glucagon,Human Recombinant 1 MG Vial IM PRN (06:14)
[2023-05-26] MEDS ORDERED: 50% Dextrose in Water 50 ML Syringe IVPUSH PRN (06:14)
[2023-05-26 06:55] LABS: BASOPHILS PERCENT AUTO 0.2 % (0.0-1.5); HEMATOCRIT 36.1 % (36.0-46.0); HEMOGLOBIN 11.9 g/dL (12.0-16.0); LYMPHOCYTES ABSOLUTE AUTO 0.7 K/uL (0.6-2.4); LYMPHOCYTES PERCENT AUTO 7.5 % (16.0-40.0); MEAN CORPUSCULAR HEMOGLOBIN 28.5 pg (27.0-32.0); MEAN CORPUSCULAR VOLUME 86.4 fL (80.0-98.0); MONOCYTES ABSOLUTE AUTO 0.6 K/uL (0.0-0.8); MONOCYTES PERCENT AUTO 6.3 % (0.0-15.0); NEUTROPHILS ABSOLUTE AUTO 8.2 K/uL (1.4-5.7); PLATELET COUNT,PLT 198 K/uL (150-400); RED BLOOD CELL COUNT 4.18 M/uL (4.30-5.90); WHITE BLOOD CELL COUNT,WBC 9.51 K/uL (4.0-11.0)
[2023-05-26 07:14] LABS: A/G RATIO 0.9 (0.9-1.6); ALBUMIN 3.2 g/dL (3.4-5.0); BILIRUBIN TOTAL 0.3 mg/dL (0.2-1.0); CALCIUM 7.7 mg/dL (8.5-10.1); CARBON DIOXIDE,CO2 21.3 mmol/L (21.0-32.0); CREATININE 0.8 mg/dL (0.6-1.0); EST CRCL DRUG DOSING (CG) 60.66 mL/min; POTASSIUM,K 3.4 mmol/L (3.5-5.1); PROTEIN TOTAL,TP 6.9 g/dL (6.4-8.2)
[2023-05-26] MEDS: Insulin Aspart 100 Units/ML 3 ML Pen SUBCUT SCH ×3 (08:18→17:30)
[2023-05-26] MEDS ORDERED: Potassium Chloride 20 MEQ Tab.ER PO ONE (09:26)
[2023-05-26] MEDS ORDERED: Magnesium Sulfate/Water 2 GM in Premix Bag 1 BAG IV ONE (09:27)
[2023-05-26 10:07] LABS: CORONAVIRUS COVID-19 NAA POSITIVE (NEGATIVE); INFLUENZA A NAA NEGATIVE (NEGATIVE); INFLUENZA B NAA NEGATIVE (NEGATIVE)
[2023-05-26] MEDS ORDERED: Ondansetron 4 MG/2 ML SDV IVPUSH ONE (13:30)
[2023-05-26] MEDS ORDERED: Labetalol 100 MG/20 ML MDV IVPUSH ONE (14:40)
[2023-05-26] MEDS: Benzocaine/Cetylpyridinium/Menthol Lozenge MUCMEM PRN ×2 (16:03→20:39)
[2023-05-26] MEDS: Piperacillin/Tazobactam 4.5 GM in Sodium Chloride 0.9% 100 ML IV SCH ×2 (17:35→22:32)
[2023-05-26] MEDS: Ibuprofen 400 MG Tab PO PRN ×2 (17:42→23:50)
[2023-05-26 17:47] LABS: BASOPHILS PERCENT AUTO 0.1 % (0.0-1.5); HEMATOCRIT 37.7 % (36.0-46.0); HEMOGLOBIN 12.5 g/dL (12.0-16.0); LYMPHOCYTES ABSOLUTE AUTO 0.6 K/uL (0.6-2.4); LYMPHOCYTES PERCENT AUTO 6.5 % (16.0-40.0); MEAN CORPUSCULAR HEMOGLOBIN 28.3 pg (27.0-32.0); MEAN CORPUSCULAR HGB CONC 33.2 g/dL (31.0-37.0); MEAN CORPUSCULAR VOLUME 85.3 fL (80.0-98.0); MONOCYTES ABSOLUTE AUTO 0.5 K/uL (0.0-0.8); MONOCYTES PERCENT AUTO 5.6 % (0.0-15.0); NEUTROPHILS ABSOLUTE AUTO 7.9 K/uL (1.4-5.7); NEUTROPHILS PERCENT AUTO 87.8 % (48.0-80.0); NRBC ABSOLUTE 0 K/uL; PLATELET COUNT,PLT 208 K/uL (150-400); RED BLOOD CELL COUNT 4.42 M/uL (4.30-5.90); WHITE BLOOD CELL COUNT,WBC 9.03 K/uL (4.0-11.0)
[2023-05-26 17:53] LABS: LACTIC ACID 1.6 mmol/L (0.4-2.0)
[2023-05-26] MEDS ORDERED: Aspirin 81 MG Tab.EC PO SCH (18:00)
[2023-05-26] MEDS: Lisinopril 5 MG Tab PO SCH (19:59)
[2023-05-26] MEDS: Benzonatate 100 MG Cap PO PRN (19:59)
[2023-05-26] MEDS ORDERED: atorvaSTATin 40 MG Tab PO SCH (21:00)
[2023-05-26] MEDS: Albuterol/Ipratropium 3.0-0.5 MG/3 ML Neb Soln NEB PRN (23:51)
[2023-05-27] MEDS: Piperacillin/Tazobactam 4.5 GM in Sodium Chloride 0.9% 100 ML IV SCH ×4 (04:14→22:09)
[2023-05-27] MEDS: Acetaminophen 325 MG Tab PO PRN ×3 (04:33→15:59)
[2023-05-27] MEDS: Benzocaine/Cetylpyridinium/Menthol Lozenge MUCMEM PRN ×3 (04:33→20:28)
[2023-05-27] MEDS: Ibuprofen 400 MG Tab PO PRN ×2 (06:28→18:35)
[2023-05-27] MEDS: Pantoprazole 40 MG Tab.CR PO SCH (06:30)
[2023-05-27 07:59] LABS: BASOPHILS PERCENT AUTO 0.2 % (0.0-1.5); HEMATOCRIT 35.1 % (36.0-46.0); HEMOGLOBIN 11.3 g/dL (12.0-16.0); LYMPHOCYTES ABSOLUTE AUTO 0.7 K/uL (0.6-2.4); LYMPHOCYTES PERCENT AUTO 11.5 % (16.0-40.0); MEAN CORPUSCULAR HGB CONC 32.2 g/dL (31.0-37.0); MEAN CORPUSCULAR VOLUME 86.9 fL (80.0-98.0); MONOCYTES ABSOLUTE AUTO 0.4 K/uL (0.0-0.8); MONOCYTES PERCENT AUTO 6.5 % (0.0-15.0); NEUTROPHILS ABSOLUTE AUTO 5.3 K/uL (1.4-5.7); NEUTROPHILS PERCENT AUTO 81.8 % (48.0-80.0); NRBC ABSOLUTE 0 K/uL; PLATELET COUNT,PLT 180 K/uL (150-400); RED BLOOD CELL COUNT 4.04 M/uL (4.30-5.90); WHITE BLOOD CELL COUNT,WBC 6.45 K/uL (4.0-11.0)
[2023-05-27] MEDS: Insulin Aspart 100 Units/ML 3 ML Pen SUBCUT SCH ×3 (08:11→17:40)
[2023-05-27 08:18] LABS: A/G RATIO 0.9 (0.9-1.6); BILIRUBIN TOTAL 0.5 mg/dL (0.2-1.0); CALCIUM 7.8 mg/dL (8.5-10.1); CREATININE 0.5 mg/dL (0.6-1.0); EST CRCL DRUG DOSING (CG) 97.06 mL/min; POTASSIUM,K 3.9 mmol/L (3.5-5.1); PROTEIN TOTAL,TP 6.3 g/dL (6.4-8.2)
[2023-05-27] MEDS ORDERED: cefTRIAXone 1 GM in Sodium Chloride 0.9% 50 ML IV SCH (09:00)
[2023-05-27] MEDS: PAXLOVID PO SCH ×2 (11:45→20:19)
[2023-05-27] MEDS: Benzonatate 100 MG Cap PO PRN ×2 (12:10→22:08)
[2023-05-27] MEDS: Albuterol/Ipratropium 3.0-0.5 MG/3 ML Neb Soln NEB PRN (15:35)
[2023-05-27] MEDS: Lisinopril 5 MG Tab PO SCH (20:00)
[2023-05-27] MEDS: Enoxaparin 40 MG/0.4 ML Syringe SUBCUT SCH (20:01)
[2023-05-28] MEDS: Benzocaine/Cetylpyridinium/Menthol Lozenge MUCMEM PRN (03:34)
[2023-05-28] MEDS: Piperacillin/Tazobactam 4.5 GM in Sodium Chloride 0.9% 100 ML IV SCH (04:46)
[2023-05-28 05:52] LABS: BASOPHILS PERCENT AUTO 0.2 % (0.0-1.5); EOSINOPHILS PERCENT AUTO 0.4 % (0.0-7.0); HEMATOCRIT 35.2 % (36.0-46.0); HEMOGLOBIN 11.2 g/dL (12.0-16.0); LYMPHOCYTES PERCENT AUTO 20.4 % (16.0-40.0); MEAN CORPUSCULAR HEMOGLOBIN 27.6 pg (27.0-32.0); MEAN CORPUSCULAR HGB CONC 31.8 g/dL (31.0-37.0); MEAN CORPUSCULAR VOLUME 86.7 fL (80.0-98.0); MONOCYTES ABSOLUTE AUTO 0.4 K/uL (0.0-0.8); MONOCYTES PERCENT AUTO 8.7 % (0.0-15.0); NEUTROPHILS ABSOLUTE AUTO 3.4 K/uL (1.4-5.7); NEUTROPHILS PERCENT AUTO 70.3 % (48.0-80.0); NRBC ABSOLUTE 0 K/uL; PLATELET COUNT,PLT 187 K/uL (150-400); RED BLOOD CELL COUNT 4.06 M/uL (4.30-5.90); WHITE BLOOD CELL COUNT,WBC 4.85 K/uL (4.0-11.0)
[2023-05-28 06:25] LABS: A/G RATIO 0.8 (0.9-1.6); BILIRUBIN TOTAL 0.5 mg/dL (0.2-1.0); CALCIUM 8.2 mg/dL (8.5-10.1); CARBON DIOXIDE,CO2 25.2 mmol/L (21.0-32.0); CREATININE 0.9 mg/dL (0.6-1.0); EST CRCL DRUG DOSING (CG) 53.92 mL/min; POTASSIUM,K 3.8 mmol/L (3.5-5.1); PROTEIN TOTAL,TP 6.8 g/dL (6.4-8.2)
[2023-05-28] MEDS: Pantoprazole 40 MG Tab.CR PO SCH (06:30)
[2023-05-28] MEDS: Insulin Aspart 100 Units/ML 3 ML Pen SUBCUT SCH ×2 (07:53→11:35)
[2023-05-28] MEDS: Ibuprofen 400 MG Tab PO PRN (07:53)
[2023-05-28] MEDS: Enoxaparin 40 MG/0.4 ML Syringe SUBCUT SCH ×2 (07:54→08:20)
[2023-05-28] MEDS: PAXLOVID PO SCH ×2 (07:55→08:20)
[2023-05-28 12:18] VITALS: BP 135/80; PULSE 80
== END 2023-05-28 12:05 | disposition home or self-care (01) | DRG 177 ==
LOC: MW.ED 20:59 → MW.MS 05-26 03:11 → OBSVTOIN 05-27 12:47
PROVIDERS: ADMIT Family Medicine; ATTEND Family Medicine
DX: U07.1 COVID-19 (principal); J12.82 Pneumonia due to coronavirus disease 2019; N39.0 Urinary tract infection, site not specified; Z68.42 Body mass index [BMI] 45.0-49.9, adult; N83.201 Unspecified ovarian cyst, right side; N28.1 Cyst of kidney, acquired; I10 Essential (primary) hypertension; K21.9 Gastro-esophageal reflux disease without esophagitis; M54.2 Cervicalgia; G89.29 Other chronic pain; E11.9 Type 2 diabetes mellitus without complications; E66.9 Obesity, unspecified; F41.9 Anxiety disorder, unspecified; Z88.5 Allergy status to narcotic agent; Z79.4 Long term (current) use of insulin; Z79.84 Long term (current) use of oral hypoglycemic drugs; Z79.899 Other long term (current) drug therapy; Z87.442 Personal history of urinary calculi; Z87.81 Personal history of (healed) traumatic fracture; Z90.49 Acquired absence of other specified parts of digestive tract; Z98.891 History of uterine scar from previous surgery; Z98.890 Other specified postprocedural states; Z88.8 Allergy status to other drugs, medicaments and biological substances
CPT/HCPCS: 0240U; 36415; 71046; 71046-26; 71275; 71275-26; 74177; 74177-26; 80053; 80202; 81001; 82947; 83605; 83690; 83735; 83880; 84443; 84484; 85025; 85379; 87040; 93005; 93010; 96361; 96365; 96366; 96367; 96374; 96375; 99222; 99232; 99239; 99284; 99285-25; A9270-GY; G0378; J0696; J1650; J1815-GY; J1885; J2405; J2543; J3370; J3475; J3490; J7030; J7050; J7620-GY; Q9967

== ENCOUNTER 2024-03-03 08:21 | Day surgery (SDC) | payer OTHER ==
[~2024-03-03 08:21] MED LIST changes: +Albuterol 0.083% 2.5 MG/3 ML Neb Soln NEB PRN; +HYDROmorphone 1 MG/ML Syringe IVPUSH PRN; -Lactated Ringers 1,000 ML IV SCH; +Metoclopramide 10 MG/2 ML SDV IVPUSH PRN; +Morphine 2 MG/ML SYRINGE IVPUSH PRN; +Naloxone 0.4 MG/ML SDV IVPUSH PRN; +Ondansetron 4 MG/2 ML SDV IVPUSH PRN; -Sodium Chloride 0.9% 10 ML SDV IV PRN; -Sodium Chloride 0.9% 10 ML Syringe FLUSH PRN; -Sodium Chloride 0.9% 2.5 ML Syringe FLUSH PRN; +droPERidol 5 MG/2 ML SDV IVPUSH PRN; +fentaNYL 50 MCG/ML SDV IVPUSH PRN
[2024-03-03] MEDS ORDERED: Bupivacaine 0.25% 30 ML SDV ONE ×2 (08:25→08:26)
[2024-03-03] MEDS ORDERED: propofoL 100 ML ONE (08:25)
[2024-03-03] MEDS ORDERED: Ropivacaine 0.5% 5 MG/ML 30 ML SDV ONE (08:25)
[2024-03-03] MEDS ORDERED: Rocuronium Bromide 50 MG/5 ML Syringe ONE (08:26)
[2024-03-03] MEDS ORDERED: Methylene Blue 100 MG/10 ML SDV ONE (08:26)
[2024-03-03] MEDS ORDERED: Lidocaine 1% 5 ML VIAL ONE (08:26)
[2024-03-03] MEDS ORDERED: Sugammadex Sodium 200 MG/2 ML VIAL IV ONE (08:26)
[2024-03-03] MEDS ORDERED: Ondansetron 4 MG/2 ML SDV ONE (08:26)
[2024-03-03] MEDS ORDERED: dexmedeTOMIDine HCl 200 MCG/2 ML SDV ONE (08:26)
[2024-03-03] MEDS ORDERED: Metoclopramide 10 MG/2 ML SDV ONE ×2 (08:26→08:46)
[2024-03-03] MEDS ORDERED: Ketorolac 30 MG/ML SDV ONE (08:26)
[2024-03-03] MEDS ORDERED: droPERidol 5 MG/2 ML SDV ONE (08:26)
[2024-03-03] MEDS ORDERED: Dexamethasone 4 MG/ML 5 ML MDV ONE (08:26)
[2024-03-03] MEDS ORDERED: fentaNYL 100 MCG/2 ML SDV ONE (08:38)
[2024-03-03] MEDS ORDERED: Water For Injection, Sterile 20 ML ONE (08:42)
[2024-03-03] MEDS ORDERED: Magnesium Sulfate (4.06 MEQ/ML) 5 GM/10 ML SDV ONE (08:46)
[2024-03-03] MEDS: Lactated Ringers 1,000 ML IV SCH (08:53)
[2024-03-03] MEDS: Scopalamine 1mg/3day Transdermal Patch TOP ONE (08:54)
[2024-03-03] MEDS ORDERED: Lidocaine 2% 5 ML SDV ONE (09:01)
[2024-03-03] MEDS ORDERED: Scopalamine 1mg/3day Transdermal Patch TOP ONE (10:00)
[2024-03-03] MEDS ORDERED: Esmolol 100 MG/10 ML SDV ONE (11:18)
[2024-03-03] MEDS: oxyCODONE 5 MG Tab PO ONE (13:35)
[2024-03-03 14:07] VITALS: BP 130/83; PULSE 83
== END 2024-03-03 14:20 | disposition home or self-care (01) ==
LOC: MW.SDS 08:21
PROVIDERS: ATTEND Obstetrics & Gynecology
DX: D49.59 Neoplasm of unspecified behavior of other genitourinary organ (principal); N84.0 Polyp of corpus uteri; N83.201 Unspecified ovarian cyst, right side; I10 Essential (primary) hypertension; E11.9 Type 2 diabetes mellitus without complications; E78.00 Pure hypercholesterolemia, unspecified; K21.9 Gastro-esophageal reflux disease without esophagitis; Z79.4 Long term (current) use of insulin; Z79.84 Long term (current) use of oral hypoglycemic drugs; Z79.899 Other long term (current) drug therapy; Z88.5 Allergy status to narcotic agent
CPT/HCPCS: 36415; 58558; 58661; 82947; 84703; A9270; J0131; J0665; J1100; J1790; J1885; J2405; J2704; J2765; J2795; J3010; J3475; J3490; J7120; Q9968; 00840; 64999